=== PATIENT | female | born 2000 | race Caucasian/White ===

== ENCOUNTER 2022-06-28 13:44 | Emergency (ER) | payer OTHER ==
[2022-06-28 14:04] VITALS: BP 123/76; PULSE 82; RESP 18; TEMP 98.1; BMI 23.5
[2022-06-28 15:09] LABS: BASO % 0.2 % (0-2.0); EOS % 0.2 % (0-4.5); HEMATOCRIT 40.9 % (32.4-45.2); HEMOGLOBIN 13.8 GM/dL (10.7-15.3); LYMPH % 8.7 % (8-40); MCH 30.4 pg (25.7-33.7); MCHC 33.7 g/dl (32.0-36.0); MEAN CELL VOLUME 90.3 fl (80-96); MEAN PLT VOLUME 8.7 fl (7.5-11.1); MONO % 3.6 % (3.8-10.2); NEUT % 87.3 % (42.8-82.8); PLATELET COUNT 283 10^3/uL (134-434); RBC 4.53 M/mm3 (3.60-5.2); RDW 12.5 % (11.6-15.6); WHITE BLOOD COUNT 16.5 K/mm3 (4.0-10.0)
[2022-06-28 15:16] LABS: INR 1.18 (0.83-1.09); PROTHROMBIN TIME (PATIENT) 13.7 SEC (9.7-13.0)
[2022-06-28 15:24] LABS: ALBUMIN 3.7 g/dl (3.4-5.0); CALCIUM 9.2 mg/dL (8.5-10.1)
[2022-06-28 15:25] LABS: BLOOD UREA NITROGEN 9.1 mg/dL (7-18)
[2022-06-28 15:27] LABS: CREATININE 0.7 mg/dL (0.55-1.3)
[2022-06-28 15:29] LABS: BILIRUBIN,TOTAL 1.2 mg/dL (0.2-1); TOT PROT 7.1 g/dl (6.4-8.2)
== END 2022-06-28 16:46 | disposition home or self-care (01) ==
LOC: JER 13:44
DX: R06.02 Shortness of breath (principal); M79.661 Pain in right lower leg; M79.662 Pain in left lower leg
CPT/HCPCS: 36415; 71046-TC-FY; 80053; 84703; 85025; 85379; 85610; 86850; 86900; 86901; 93005; 93010; 93970-TC; 99285-25